=== PATIENT | female | born 1955 | race Caucasian/White ===

== ENCOUNTER 2017-11-03 05:20 | Emergency (ER) | payer SELFPAY ==
[~2017-11-03] VITALS: Ht 160 cm; Wt 63.5 kg
[2017-11-03] MEDS ORDERED: ACETAMINOPHEN 325 MG TAB PO ONE (07:00)
[2017-11-03 07:17] VITALS: BP 98/52
== END 2017-11-03 07:19 | disposition home or self-care (01) ==
LOC: EDBD 05:20 → ER 05:25
DX: S00.93XA Contusion of unspecified part of head, initial encounter (principal); M19.90 Unspecified osteoarthritis, unspecified site; Y08.89XA Assault by other specified means, initial encounter; Y93.89 Activity, other specified; Y99.8 Other external cause status; Y92.89 Other specified places as the place of occurrence of the external cause
CPT/HCPCS: 70450

== ENCOUNTER 2018-08-11 06:11 | Emergency (ER) | payer MEDICARE, OTHER ==
[~2018-08-11] VITALS: Ht 162.6 cm; Wt 86.2 kg
[2018-08-11 06:25] VITALS: BP 152/86
== END 2018-08-11 06:55 | disposition left against medical advice (07) ==
LOC: EDBD 06:11 → ER 06:11
DX: M54.5 Low back pain (principal); M19.90 Unspecified osteoarthritis, unspecified site; Z88.1 Allergy status to other antibiotic agents; V89.2XXA Person injured in unspecified motor-vehicle accident, traffic, initial encounter; Y93.89 Activity, other specified; Y92.410 Unspecified street and highway as the place of occurrence of the external cause; Y99.8 Other external cause status

== ENCOUNTER → 2019-12-23 | Emergency (ER) | payer OTHER ==
[~2019-12-23] VITALS: Ht 162.6 cm; Wt 68.0 kg
[~2019-12-23] MED LIST: NALOXONE HCL 0.4 MG/ML VIAL IV ONE; NALOXONE HCL 0.4 MG/ML VIAL ONE; SODIUM CHLORIDE 0.9% 1,000 ML IV ONE; THIAMINE 100mg/ml INJ (200mg/2ml VIAL) IV ONE; THIAMINE INJ 100 MG in SODIUM CHLORIDE 0.9% 1,000 ML IV ONE
[2019-12-23 21:03] LABS: Basophils # (auto) 0 10 ^3/uL (0-0.2); Eosinophils # (auto) 0 10 ^3/uL (0-0.8); Lymphocytes # (auto) 0.9 10 ^3/uL (0.4-5.4); Monocytes # (auto) 0.2 10 ^3/uL (0-1.3); Neutrophils # (auto) 2.4 10 ^3/uL (1.6-8.6); Nucleated Red Blood Cells % 0.1 %; Red Blood Cells 3.81 10^6/uL (4.0-5.20); White Blood Cell 3.5 10^3/uL (4.4-10.8)
[2019-12-23 21:05] LABS: Albumin 2.8 g/dL (3.4-5.0); BUN/Creatinine Ratio 19.1; Basophils % (auto) 0.4 % (0.0-2.0); Calcium 7.9 mg/dL (8.5-10.1); Eosinophils % (auto) 0.5 % (0.0-7.0); Hemoglobin 8.7 g/dL (12.2-16.2); Mean Corpuscular Hemoglobin 22.8 pg (28.0-32.0); Mean Corpuscular Volume 73.5 fL (80.0-100.0); Monocytes % (auto) 5.1 % (0.0-12.0); Platelet Count (auto) 311 10^3/uL (140-450); Potassium 3.7 mmol/L (3.5-5.1); Red Cell Distribution Width 18.9 % (11.8-14.3)
[2019-12-23 21:08] LABS: Bilirubin, Total 0.2 mg/dL (0.2-1.0); Total Protein 6.8 g/dL (6.4-8.2)
[2019-12-23 21:12] VITALS: BP 121/71
[2019-12-23 21:39] LABS: INR 1.01 (0.9-1.15)
== END | disposition home or self-care (01) ==
LOC: EDBD 18:25 → ER 18:28 → EDUNIT# 18:28
DX: S16.1XXA Strain of muscle, fascia and tendon at neck level, initial encounter (principal); F10.129 Alcohol abuse with intoxication, unspecified; K70.30 Alcoholic cirrhosis of liver without ascites; F19.10 Other psychoactive substance abuse, uncomplicated; Y90.9 Presence of alcohol in blood, level not specified; V89.2XXA Person injured in unspecified motor-vehicle accident, traffic, initial encounter; Y93.89 Activity, other specified; Y92.488 Other paved roadways as the place of occurrence of the external cause; Y99.8 Other external cause status
CPT/HCPCS: 36415; 70450; 71250; 72125; 80053; 80320; 85025; 85610; 85730; 96365; 96366; 96375; 99285; J2310; J3411; J7030

== ENCOUNTER 2020-10-23 14:44 | Emergency (ER) | payer OTHER, MEDICAID ==
[~2020-10-23] VITALS: Ht 157.5 cm; Wt 56.7 kg
[2020-10-23] MEDS ORDERED: PANTOPRAZOLE 40 MG/10 ML VIAL INJ IV STA (15:16)
[2020-10-23 15:24] LABS: Urine WBC None Seen /hpf (0 - 5)
[2020-10-23] MEDS ORDERED: ONDANSETRON HCL 4 MG/2 ML VIAL IV ONE (15:30)
[2020-10-23] MEDS ORDERED: SODIUM CHLORIDE 0.9% 500 ML IVB ONE (15:30)
[2020-10-23] MEDS ORDERED: MORPHINE SULFATE 4 MG/ML SYR/VIAL IV ONE (15:30)
[2020-10-23 15:35] LABS: Urine Bacteria NONE SEEN /hpf (None Seen); Urine Blood Negative /uL (Negative)
[2020-10-23 16:28] LABS: Basophils # (auto) 0 10 ^3/uL (0-0.2); Eosinophils # (auto) 0.1 10 ^3/uL (0-0.8); Mean Corpuscular Hemoglobin 21.2 pg (28.0-32.0); Monocytes # (auto) 0.3 10 ^3/uL (0-1.3); Nucleated Red Blood Cells % 0.1 %
[2020-10-23 16:30] LABS: Basophils % (auto) 0.9 % (0.0-2.0); Eosinophils % (auto) 3.5 % (0.0-7.0); Hematocrit 26.6 % (36.0-46.0); Lymphocytes % (auto) 33.4 % (10.0-50.0); Mean Corpuscular Hgb Conc. 30.2 g/dL (32.0-36.0); Mean Corpuscular Volume 70.1 fL (80.0-100.0); Monocytes % (auto) 11.2 % (0.0-12.0); Neutrophils # (auto) 1.5 10 ^3/uL (1.6-8.6); Platelet Count (auto) 237 10^3/uL (140-450)
[2020-10-23 16:41] LABS: Albumin 3.2 g/dL (3.4-5.0); Calcium 8.9 mg/dL (8.5-10.1); Potassium 4.1 mmol/L (3.5-5.1)
[2020-10-23 16:45] LABS: BUN/Creatinine Ratio 16.7; Bilirubin, Total 0.4 mg/dL (0.2-1.0); Total Protein 7.8 g/dL (6.4-8.2)
[2020-10-23 17:33] VITALS: BP 108/64
== END 2020-10-23 18:40 | disposition home or self-care (01) ==
LOC: ER 14:44
DX: R10.31 Right lower quadrant pain (principal); R10.32 Left lower quadrant pain; F17.210 Nicotine dependence, cigarettes, uncomplicated; Z90.49 Acquired absence of other specified parts of digestive tract; Z88.1 Allergy status to other antibiotic agents
CPT/HCPCS: 36415; 74176; 80053; 81001; 83690; 85025; 93005; 96361; 96374; 96375; 99285; C9113; J2270; J2405; J7040